=== PATIENT | female | born 1985 ===

== ENCOUNTER 2019-09-29 09:04 | Emergency (ER) | payer OTHER ==
[~2019-09-29] VITALS: Ht 160 cm; Wt 86.2 kg
[~2019-09-29 09:04] MED LIST: ALPR.25 PO; AMOX1XR PO; Augmentin 875-1 EACH PO; CEPH500 PO; CYCL10 PO; DIPATR PO; Esgic Tablet1 EACH PO; Flonase 0.05% N16 GM; HYDACE10B PO; HYDCHL12.5 PO; Hydrocodone-Ap1 EA23 PO; IBUP800 PO; LEVFLO500 PO; Norco 5-325 Ta1 EACH PO; OXYACE5T PO; PROM25 PO; Percocet 5-3251 EACH PO; SULTRIDS PO; Verotin-Gr Cap1 EACH PO; Zofran Odt4 MG SL
[2019-09-29] MEDS ORDERED: CYAN500 (09:26)
[2019-09-29] MEDS ORDERED: VITAMIN D3400 UNIT (09:27)
[2019-09-29] MEDS ORDERED: VITAMIN C500 MG (09:27)
[2019-09-29 09:32] LABS: Source, Urine Clean Catch
[2019-09-29 09:39] LABS: Bilirubin, Urine Neg (Neg); Blood, Urine 3+ (Neg); Glucose Qualitative, Urine Neg (Neg); Ketones, Urine Neg (Neg); Leukocyte Esterase, Urine 1+ (Neg); Nitrite, Urine Neg (Neg); Protein, Urine Neg (Neg); Urobilinogen, Urine NORM (Normal)
[2019-09-29 09:55] LABS: Appearance, Urine Clear (Clear); Bacteria Rare /hpf; Color, Urine Yellow (P-Yellow); Red Blood Cells, Urine 0-2 /hpf (0-2); White Blood Cells, Urine 0-2 /hpf (0-5)
[2019-09-29 09:56] LABS: Squamous Epithelial Cells Rare /hpf (Few)
[2019-09-29] MEDS ORDERED: Pyridium100 MG PO (10:16)
[2019-09-29] MEDS ORDERED: KEFLEX500 MG PO (10:16)
== END 2019-09-29 10:25 | disposition home or self-care (01) ==
LOC: ER 09:04
PROVIDERS: Emergency Medicine
DX: N39.0 Urinary tract infection, site not specified (principal); F41.0 Panic disorder [episodic paroxysmal anxiety]; F43.10 Post-traumatic stress disorder, unspecified; Z87.891 Personal history of nicotine dependence; Z91.040 Latex allergy status; Z91.048 Other nonmedicinal substance allergy status; Z79.899 Other long term (current) drug therapy
CPT/HCPCS: 81001; 81025; 87077; 87086; 87186; 99283